=== PATIENT | male | born 1960 | race Caucasian/White ===

== ENCOUNTER 2025-05-09 09:19 | Emergency (ER) | payer BC, OTHER ==
[2025-05-09] MEDS ORDERED: hydrALAZINE 20 MG/ML VIAL ONE (10:41)
== END 2025-05-09 10:30 | disposition home or self-care (01) ==
LOC: ERS 09:19
DX: I10 Essential (primary) hypertension (principal); E11.9 Type 2 diabetes mellitus without complications; E78.5 Hyperlipidemia, unspecified; E03.9 Hypothyroidism, unspecified; Z79.82 Long term (current) use of aspirin; Z79.899 Other long term (current) drug therapy; Z55.6 Problems related to health literacy
CPT/HCPCS: 96372; 99283; J0360